=== PATIENT | male | born 1945 | race Caucasian/White ===

== ENCOUNTER → 2018-01-01 | Outpatient (CLI) | payer MEDICARE ==
[~2018-01-01] MED LIST: ATOR80 PO; LEVFLO500 PO; LISI20 PO; METF500 PO
== END | disposition home or self-care (01) ==
LOC: LAB SHORT 09:53 → PLD 09:53
DX: D48.5 Neoplasm of uncertain behavior of skin (principal)
CPT/HCPCS: 88305

== ENCOUNTER 2018-07-25 07:44 | Day surgery (SDC) | payer MEDICARE ==
[~2018-07-25] VITALS: Ht 182.9 cm; Wt 109.0 kg
[~2018-07-25 07:44] MED LIST changes: +ALBU90OI6 INH; +AMLO10 PO; +ASPI81CH PO; +ATOR40TA PO; +Alph-E-Mixed400 UNIT PO; +CVS OMEGA-3 KR1 EACH PO; +Centrum Silver1 EAC1 PO; +DOXA1 PO; +FINA5 PO; -METF500 PO; +METF500C PO; +Omeprazole20 M1; +SITA50T2 PO; +VITAMIN D31000 UNIT PO
[2018-07-25] MEDS ORDERED: METO25ER PO (08:08)
--- NOTE | 2018-07-25 10:45 | NUR ---
11cc air removed from tr band. -bleeding or swelling.
[2018-07-25] MEDS ORDERED: AMLO10 PO (10:55)
[2018-07-25] MEDS ORDERED: ABAT250V (10:56)
--- NOTE | 2018-07-25 11:15 | NUR ---
TR BAND REMOVED. -BLEEDING OR SWELLING. PUNCTURE AREA CLEANED WITH NS AND RED DOT DRSG PLACED. R WRIST SPLINT REAPPLIED. PT AND VERBALIZED UNDERSTANDING OF WRITTEN AND VERBAL D/C INST. IV REMOVED. PT TAKEN OUT OF THE [facility] VIA W/C.
== END 2018-07-25 11:30 | disposition home or self-care (01) ==
LOC: MHTC 07:44
DX: I25.10 Atherosclerotic heart disease of native coronary artery without angina pectoris (principal); I10 Essential (primary) hypertension; E11.9 Type 2 diabetes mellitus without complications; E78.5 Hyperlipidemia, unspecified; K21.9 Gastro-esophageal reflux disease without esophagitis; G89.29 Other chronic pain; M54.5 Low back pain; Z86.19 Personal history of other infectious and parasitic diseases; Z87.891 Personal history of nicotine dependence; Z82.49 Family history of ischemic heart disease and other diseases of the circulatory system; Z79.84 Long term (current) use of oral hypoglycemic drugs; Z79.82 Long term (current) use of aspirin; Z79.899 Other long term (current) drug therapy
CPT/HCPCS: 93454; 99152; 99153; C1769; C1894; J1644; J2250; J3010; J7030; Q9967

== ENCOUNTER 2018-09-01 13:35 | Emergency (ER) | payer MEDICARE ==
[~2018-09-01] VITALS: Ht 182.9 cm; Wt 108.9 kg
[~2018-09-01 13:35] MED LIST changes: +ABAT250V; +METO25ER PO
== END 2018-09-01 15:58 | disposition home or self-care (01) ==
LOC: ER 13:35
DX: S61.202A Unspecified open wound of right middle finger without damage to nail, initial encounter (principal); S61.011A Laceration without foreign body of right thumb without damage to nail, initial encounter; Z79.82 Long term (current) use of aspirin; Z79.899 Other long term (current) drug therapy; W45.8XXA Other foreign body or object entering through skin, initial encounter
CPT/HCPCS: 12001; 73130; 99283-25

== ENCOUNTER → 2018-11-28 | Outpatient (CLI) | payer MEDICARE, SELFPAY | END | disposition home or self-care (01) | LOC: LAB SHORT 08:59 → LAB 08:59 → PLD 08:59 | DX: D36.12 Benign neoplasm of peripheral nerves and autonomic nervous system, upper limb, including shoulder (principal) | CPT/HCPCS: 88305 ==

== ENCOUNTER → 2018-12-17 | Outpatient (CLI) | payer MEDICARE, SELFPAY | END | disposition home or self-care (01) | LOC: PLD 13:52 → LAB SHORT 13:52 | DX: D48.5 Neoplasm of uncertain behavior of skin (principal) | CPT/HCPCS: 88305 ==

== ENCOUNTER → 2023-02-28 | Outpatient (CLI) | payer OTHER | LOC: LAB SHORT 16:00 → LAB 16:00 | DX: R30.0 Dysuria (principal) | CPT/HCPCS: 87086 ==

== ENCOUNTER 2023-06-13 13:14 | Day surgery (SDC) | payer OTHER ==
[~2023-06-13] VITALS: Ht 182.9 cm; Wt 105.0 kg
[~2023-06-13 13:14] MED LIST changes: -ASPI81CH PO; +Aspir 8181 MG PO; +DOXA1; -DOXA1 PO; +ERYT.5TO; +JARDIANCE10 MG PO; +METF500 PO; +SILODOSIN8 MG PO; +Vesicare10 MG PO
[2023-06-13] MEDS ORDERED: OLME20 PO (13:54)
[2023-06-13] MEDS ORDERED: AMLO5 PO (13:55)
--- NOTE | 2023-06-13 14:33 | NUR ---
06/13/23 Keyonna Mathias PATIENT ASSISTED TO BR PRIOR TO PROCEDURE
[2023-06-13 14:52] VITALS: BP 146/77
--- NOTE | 2023-06-13 15:14 | NUR ---
06/13/23 1514 Shailesh Kendrick IV REMOVED INTACT. SITE WNL.
== END 2023-06-13 15:14 | disposition home or self-care (01) ==
LOC: ORSCSDS 13:14
PROVIDERS: Ophthalmology
PROC: 08RJ3JZ Replacement of Right Lens with Synthetic Substitute, Percutaneous Approach (ICD-10-PCS; principal; 2023-06-13 14:30)
DX: E11.36 Type 2 diabetes mellitus with diabetic cataract (principal); H25.11 Age-related nuclear cataract, right eye; H16.12 Filamentary keratitis; E78.5 Hyperlipidemia, unspecified; K21.9 Gastro-esophageal reflux disease without esophagitis
CPT/HCPCS: 82947; J2250; J3301; J7040; V2632

== ENCOUNTER → 2024-03-24 | Outpatient (CLI) | payer OTHER ==
[~2024-03-24] MED LIST changes: +AMLO5 PO; +KRILL OIL500 MG PO; +MULVITA PO; +OLME20 PO; +OMEP20ER PO; -Omeprazole20 M1; +RYBELSUS14 MG PO; +VITAMIN D310 MC4 PO
== END ==
LOC: LAB SHORT 12:12 → LAB 12:12
DX: N39.0 Urinary tract infection, site not specified (principal)
CPT/HCPCS: 87077; 87086; 87186

== ENCOUNTER → 2024-04-07 | Outpatient (CLI) | payer OTHER | LOC: LAB SHORT 18:22 → LAB 18:22 | DX: N39.0 Urinary tract infection, site not specified (principal) | CPT/HCPCS: 87077; 87086; 87186 ==

== ENCOUNTER 2024-08-26 07:50 | Day surgery (SDC) | payer OTHER ==
[~2024-08-26] VITALS: Ht 177.8 cm; Wt 102.1 kg
[2024-08-26] VITALS (16 sets, daily range): BP systolic 115–152; BP diastolic 60–81
[~2024-08-26 07:50] MED LIST changes: +DIABETES MED
[2024-08-26] MEDS ORDERED: Tranexamic Acid 100 ML IV SCH (08:20)
[2024-08-26] MEDS ORDERED: Acetaminophen 500 MG Tab PO SCH ×2 (08:20→16:00)
[2024-08-26] MEDS ORDERED: Lactated Ringer's 1,000 ML IV SCH ×2 (08:20→10:00)
[2024-08-26] MEDS ORDERED: CeFAZolin Sodium 2,000 MG in NS 100 ML IV SCH ×2 (08:20→18:00)
[2024-08-26] MEDS ORDERED: Chlorhexidine Mouth Care 15 ML UDC MT SCH (08:20)
[2024-08-26] MEDS ORDERED: Ropivacaine 0.5% HCl/Pf 123.125 MG,EPINEPHrine HCL 0.25 MG,Ketorolac Tromethamine 15 MG... INFIL SCH (08:20)
--- NOTE | 2024-08-26 08:55 | NUR ---
Ambulatory in Day SurgeryPre-Op teaching done. Pt verbalizes understanding. History, Chart, Medications and Allergies reviewed before start of procedure.Patient confirms NPO status and agrees with scheduled surgery. Patient reports completing Chlorhexadine shower X2 prior to admission to hospital.Patient States Post-Procedure ride home has been arranged.
[2024-08-26] MEDS ORDERED: CeFAZolin Sodium 2,000 MG VIAL ONE (09:06)
[2024-08-26] MEDS ORDERED: OxyCODONE HCL 10 MG TABCR PO SCH (09:20)
[2024-08-26] MEDS ORDERED: FLU VACC TS2024-25(6MOS UP)/PF 45 MCG/0.5 ML SYRINGE IM PRN (09:55)
[2024-08-26] MEDS ORDERED: Midazolam HCl 1MG / ML 2ML Vial IV ONE (09:55)
[2024-08-26] MEDS ORDERED: HYDROmorphone HCl/Pf 1MG SYR IV PRN (09:55)
[2024-08-26] MEDS ORDERED: OxyCODONE HCL 5 MG TAB PO PRN ×2 (10:00→10:05)
[2024-08-26] MEDS ORDERED: Ondansetron HCl 2 MG / ML 2ML Vial IV PRN (10:00)
[2024-08-26] MEDS ORDERED: DiphenhydrAMINE HCL 25 MG Cap PO PRN (10:00)
[2024-08-26] MEDS ORDERED: Metoclopramide HCl 5MG / ML 2ML Vial IV PRN (10:05)
[2024-08-26] MEDS ORDERED: Bisacodyl 10 MG Supp PR PRN (10:05)
[2024-08-26] MEDS ORDERED: Promethazine HCl 25 MG Tab PO PRN (10:05)
[2024-08-26] MEDS ORDERED: Magnesium Hydroxide Conc 10 ML UDC PO PRN (10:05)
[2024-08-26] MEDS ORDERED: Midazolam HCl 1MG / ML 2ML Vial ONE (10:28)
[2024-08-26] MEDS ORDERED: propofoL 100 ML IV ONE (10:32)
[2024-08-26] MEDS ORDERED: Insulin Regular 100 UNIT/ML 10ML Vial SC SCH (11:30)
[2024-08-26] MEDS ORDERED: Ketorolac Tromethamine 30mg Vial ONE (12:23)
--- NOTE | 2024-08-26 15:03 | NUR ---
FIRST TIME UP/AMBULATION WAS ASSISTED TO SIDE OF BED TO DANGLE WHILE THIS RN ASSEMBLED NEEDED ITEMS. WHEN TURNED AROUND TO FACE PT AFTER FETCHING 2nd NONGRIP SOCK, PT WAS FOUND TO BE STANDING ONLY HOLDING 1 SIDE OF THE WALKER HE COULD GRAB. ASKED TO SIT & EDUCATED ON SAFETY, PT INFORMED THIS RN THAT HE KNEW WHAT HE WAS DOING. SAT BACK AT SIDE OF BED & ALLOWED THIS RN TO APPLY SOCKS & GB THEN USED FWW TO AMBULATE IN HALLWAY.
--- NOTE | 2024-08-26 16:54 | NUR ---
DISCHARGE PT WORKED w/ THERAPY. PAIN WELL CONTROLLED. EATING, DRINKING, & VOIDING WELL. EDUIN & POLAR PACK SENT w/ PT. ESCORTED OUT VIA W/C.
[2024-08-26] MEDS ORDERED: Ketorolac Tromethamine 15mg Vial IV SCH (18:00)
[2024-08-26] MEDS ORDERED: Docusate Sodium 100 MG Cap PO SCH (21:00)
[2024-08-27] MEDS ORDERED: AmLODIPine Besylate 5 MG Tab PO SCH (09:00)
[2024-08-27] MEDS ORDERED: Aspirin 81 MG Chew PO SCH (09:00)
== END 2024-08-26 16:52 | disposition home or self-care (01) ==
LOC: ORSCMMR 07:50 → SURS 13:07 → ORSCMMR 16:52
PROVIDERS: Orthopaedic Surgery
PROC: 8E0Y0CZ Robotic Assisted Procedure of Lower Extremity, Open Approach (ICD-10-PCS; principal; 2024-08-26 09:15)
PROC: 0SRC0JA Replacement of Right Knee Joint with Synthetic Substitute, Uncemented, Open Approach (ICD-10-PCS; principal; 2024-08-26 09:15)
DX: M17.11 Unilateral primary osteoarthritis, right knee (principal); I10 Essential (primary) hypertension; E11.9 Type 2 diabetes mellitus without complications; Z79.899 Other long term (current) drug therapy; Z79.84 Long term (current) use of oral hypoglycemic drugs
CPT/HCPCS: 73560-RT; 82947; 97110; 97116; 97162; A9270; C1713; C1776; J0171; J0690; J0735; J1885; J2250; J2704; J2795; J7120

== ENCOUNTER → 2025-05-25 | Outpatient (CLI) | payer OTHER | LOC: LAB SHORT 10:30 → LAB 10:30 | DX: N39.0 Urinary tract infection, site not specified (principal) | CPT/HCPCS: 87077; 87086; 87186 ==